=== PATIENT | female | born 1975 | race Caucasian/White ===

== ENCOUNTER 2018-03-30 22:48 | Observation (INO) | payer OTHER ==
[~2018-03-30] VITALS: Ht 172.7 cm; Wt 95.4 kg
[~2018-03-30 22:48] MED LIST: ALPR0.25 PO; LOSA25TA25 PO
[2018-03-30] MEDS ORDERED: SODIUM CHLORIDE 0.9% 1,000ML IVBOLUS ONE (23:30)
[2018-03-30] MEDS ORDERED: ONDANSETRON 2MG/ML, 2ML IVPush ONE (23:30)
[2018-03-30] MEDS ORDERED: MORPHINE SULFATE 4 MG/ML, 1ML IVPush PRN (23:30)
[2018-03-30] MEDS ORDERED: SODIUM CHLORIDE FLUSH 10ML SYR IVF ONE (23:30)
--- NOTE | 2018-03-31 00:01 | NUR ---
PT ARRIVES TO ED WITH C/O ABD PAIN X 1 DAY. PT REPORTS PAIN IS LOWER RIGHT QUADRANT AND HAS REBOUND TENDERNESS AND PAINFUL TO PALPATION. PT DENIES ANY TRUAMA. PT HAS + N/V NO DIARREAH. PT HAD PIV PLACED AND INFORMED OF NPO STATUS. PT UA SENT TO LAB. PT LABS COLLECTED AND SENT TO LAB. CALL LIGHT IN REACH. AWAITING FURTHER ORDERS.
[2018-03-31 00:08] LABS: BASOPHILS # (AUTO) 0.04 x10^3/uL (0-0.1); BASOPHILS % (AUTO) 0 % (0-1); EOSINOPHILS # (AUTO) 0.45 x10^3/uL (0-0.4); EOSINOPHILS % (AUTO) 4 % (1-7); LYMPHOCYTES # (AUTO) 1.38 x10^3/uL (1-3.4); LYMPHOCYTES % (AUTO) 12 % (22-44); MD NO; MEAN CORPUSCULAR HEMOGLOBIN 29.6 pg (27.0-34.8); MEAN CORPUSCULAR HGB CONC 33.7 g/dL (32.4-35.8); MEAN CORPUSCULAR VOLUME 88.1 fL (80-100); MEAN PLATELET VOLUME 8.6 fL (7.4-10.4); MONOCYTES % (AUTO) 8 % (2-9); NEUTROPHILS # (AUTO) 8.51 x10^3/uL (1.8-6.8); NEUTROPHILS % (AUTO) 76 % (42-75); PLATELET COUNT 264 x10^3/uL (130-400); RED BLOOD COUNT 4.66 x10^6/uL (3.82-5.3); RED CELL DISTRIBUTION WIDTH 14.4 % (9.6-15.2)
[2018-03-31 00:17] LABS: INTERNATIONAL NORMALIZED RATIO 1.04 (0.93-1.1)
[2018-03-31 00:19] LABS: ALANINE AMINOTRANSFERASE 19 U/L (12-78); ALBUMIN 3.5 g/dL (3.4-5.0); ANION GAP 6 mmol/L (5-15); CALCIUM 8.5 mg/dL (8.5-10.1); CHLORIDE 105 mmol/L (98-107); CREATININE 0.96 mg/dL (0.55-1.02); MICROSCOPIC AUTO
[2018-03-31 00:20] LABS: CULTURE INDICATED? YES
[2018-03-31 00:24] LABS: ALKALINE PHOSPHATASE 56 U/L (45-117); BILIRUBIN,TOTAL 1.2 mg/dL (0.2-1.0); TOTAL PROTEIN 6.9 g/dL (6.4-8.2)
[2018-03-31] MEDS ORDERED: OMNIPAQUE 350 MG/ML, 100ML BOTTLE ONE (00:51)
[2018-03-31] MEDS ORDERED: CEFOTETAN PMX 1GM/50ML 50 ML IV ONE (01:30)
[2018-03-31] MEDS ORDERED: ONDANSETRON 2MG/ML, 2ML ONE (01:36)
[2018-03-31] MEDS ORDERED: CEFOTETAN PMX 1GM/50ML 50 ML ONE (01:36)
[2018-03-31] MEDS ORDERED: MORPHINE SULFATE 4 MG/ML, 1ML ONE (01:37)
[2018-03-31] MEDS ORDERED: BUPIVACAINE/PF-EPI 0.5% 1:200K ONE (01:49)
[2018-03-31] MEDS ORDERED: SODIUM CHLORIDE 0.9% 1,000 ML IV ONE (02:00)
[2018-03-31] MEDS ORDERED: MORPHINE SULFATE 4 MG/ML, 1ML IVPush PRN ×3 (02:00→09:00)
[2018-03-31] MEDS ORDERED: ONDANSETRON 2MG/ML, 2ML IVPush PRN (02:00)
--- NOTE | 2018-03-31 02:04 | NUR ---
REPORT TO VIV CABRAL.
--- NOTE | 2018-03-31 02:04 | NUR ---
ORDERED FLUIDS AND PAIN MEDS AND ABX STARTED. NO NEED FOR BLOOD CULTURES PER ERP. PT IN HOSPITAL GOWN. PT AWARE SHE IS NPO. PT ON VITALS MONITORS.
[2018-03-31] MEDS ORDERED: BUSP7.5T3 PO (02:08)
[2018-03-31 02:57] VITALS: BP 120/86
[2018-03-31] MEDS ORDERED: BUPIVACAINE/PF 0.25% ONE (04:10)
[2018-03-31] MEDS ORDERED: EPINEPHRINE 1 MG/ML, 1ML ONE (04:10)
[2018-03-31] MEDS ORDERED: BUPIVACAINE/PF-EPI 0.25% 1:200K IM ONE (05:45)
[2018-03-31] MEDS ORDERED: MIDAZOLAM 1 MG/ML, 2ML ONE (06:07)
[2018-03-31] MEDS ORDERED: PROPOFOL 10 MG/ML, 20ML ONE (06:08)
[2018-03-31] MEDS ORDERED: ROCURONIUM 10MG/ML,5ML ONE (06:08)
[2018-03-31] MEDS ORDERED: SUCCINYLCHOLINE 20 MG/ML, 10ML ONE (06:08)
[2018-03-31] MEDS ORDERED: FENTANYL PF 250 MCG/5ML ONE (06:08)
[2018-03-31] MEDS ORDERED: CEFAZOLIN 1,000 MG ONE (06:31)
[2018-03-31] MEDS ORDERED: DEXAMETHASONE 4 MG/ML, 1ML ONE (06:31)
[2018-03-31] MEDS ORDERED: GLYCOPYRROLATE 0.4 MG/2 ML, 2ML ONE (06:45)
[2018-03-31] MEDS ORDERED: NEOSTIGMINE 1 MG/ML, 10ML ONE (06:45)
[2018-03-31] MEDS ORDERED: KETOROLAC 30 MG/1 ML ONE (06:48)
[2018-03-31] MEDS ORDERED: MEPERIDINE/PF 25MG/0.5ML IVPush PRN (07:30)
[2018-03-31] MEDS ORDERED: PROMETHAZINE 25 MG/ML, 1ML IV PRN (07:30)
[2018-03-31] MEDS ORDERED: FENTANYL PF 100 MCG/2ML IV PRN (07:30)
[2018-03-31] MEDS ORDERED: OXYcodone 5 MG/5 ML ORAL.SOL UDC PO PRN (07:30)
[2018-03-31] MEDS ORDERED: PROMETHAZINE 25 MG SUPP PR PRN (07:30)
[2018-03-31] MEDS ORDERED: HYDROmorphone 2 MG/ML, 1ML IVPush PRN (07:30)
[2018-03-31] MEDS ORDERED: HALOPERIDOL 5 MG/ML IV PRN (07:30)
[2018-03-31] MEDS ORDERED: LABETALOL 5MG/ML, 20ML IV PRN (07:30)
[2018-03-31] MEDS ORDERED: hydrALAzine 20 MG/ML, 1ML IV PRN (07:30)
[2018-03-31] MEDS ORDERED: ONDANSETRON 2MG/ML, 2ML IV PRN (07:30)
[2018-03-31] MEDS ORDERED: PROMETHAZINE 12.5 MG SUPP PR PRN (07:30)
[2018-03-31] MEDS ORDERED: PROMETHAZINE 25 MG/ML, 1ML IM PRN ×2 (07:30)
[2018-03-31] MEDS ORDERED: ONDANSETRON ODT 8 MG PO PRN (07:30)
[2018-03-31 08:06] VITALS: BP 119/71
[2018-03-31] MEDS ORDERED: HYDROcodone/APAP 5/325 TABLET PO PRN (09:00)
[2018-03-31] MEDS ORDERED: KETOROLAC 30 MG/1 ML IV PRN (09:00)
[2018-03-31] MEDS ORDERED: HYDR-3240 PO (12:45)
== END 2018-03-31 13:05 | disposition home or self-care (01) ==
LOC: ED 23:40 → INTOOBSV 03-31 01:30 → EDIP 03-31 01:30 → 4NOR 03-31 02:40 → DCLOUNGE 03-31 12:52
PROVIDERS: ADMIT Surgery; ATTEND Surgery
DX: K35.80 Unspecified acute appendicitis (principal); I10 Essential (primary) hypertension
CPT/HCPCS: 36415; 44970; 74177; 80053; 81001; 83690; 84703; 85025; 85610; 85730; 87086; 88304; 96365; 96375; 99284; G0378; J0171; J0330; J0690; J1100; J1885; J2250; J2405; J2704; J2710; J3010; J3490; J7030; Q9967